=== PATIENT | female | born 1955 | race Caucasian/White ===

== ENCOUNTER → 2023-02-06 | Outpatient (CLI) | payer MEDICARE, BC ==
[~2023-02-06] MED LIST: Excedrin Extra1 EACH; FEXPSEER; LATA.005SO BOTHEYES; NAPR220; TIMO.25OPS BOTHEYES
== END | disposition home or self-care (01) ==
LOC: LAB 18:45 → LAB SHORT 18:45
DX: R35.0 Frequency of micturition (principal)
CPT/HCPCS: 87086